=== PATIENT | female | born 1990 | race Caucasian/White ===

== ENCOUNTER 2025-04-19 21:02 | Emergency (ER) | payer SELFPAY ==
[2025-04-19 21:11] VITALS: BP 119/52; PULSE 110; RESP 20; TEMP 36.7; O2SAT 100
[2025-04-19 21:49] LABS: Strep Group A RT-PCR DETECTED (Negative)
[2025-04-19 22:05] LABS: Influenza A QL RT-PCR Negative (Negative); Influenza B QL RT-PCR Negative (Negative); SARS-CoV-2 RNA PCR Negative (Negative)
--- NOTE | 2025-04-19 23:06 | ED.GENADULT ---
HPI - General Adult General Chief complaint: Unspecified Stated complaint: Strep throat-white patches Time Seen by Provider: 04/19/25 22:47 History of Present Illness HPI narrative: Patient is a 34-year-old female who presents to the ER with a 2 day history of sore throat. She reports she noticed her throat was red 2 days ago and yesterday she started having fevers. Patient reports today she noticed white patches on her tonsils so she decided to come in for evaluation. She endorses body aches and pain. Patient endorses a history of a broken neck, hysterectomy, and multiple abdominal surgeries. She reports she has not been taking any antibiotics recently. Patient denies any neck stiffness, mastoid tenderness, difficulty swallowing, skin rashes, or shortness of breath. Related Data Allergies Allergy/AdvReac Type Severity Reaction Status Date / Time No Known Allergies Allergy Verified 04/19/25 21:03 Review of Systems Review of Systems: All systems reviewed & are unremarkable except as noted in HPI and below Exam Narrative: GENERAL: Well appearing, well-nourished, non-toxic, in no acute distress. HEAD: Normocephalic, atraumatic. + red, edematous tonsils bilaterally, no visible white patches NECK: Supple. No adenopathy, no masses. RESPIRATORY: Airway patent, respirations nonlabored. Clear to auscultation bilaterally, no rales, rhonchi, wheezing. CARDIOVASCULAR: Regular rate and rhythm without murmurs, rubs, or gallops. Peripheral pulses 2+ and equal bilaterally. ABDOMINAL: Soft, nontender, nondistended. Normoactive BS. MUSCULOSKELETAL: Moves all extremities. Strength/ROM intact without gross deformities. SKIN: Warm, dry, normal color. No rashes. NEURO: A&O X3. Speech clear. Cranial nerves II-XII intact. No ataxic movements. PSYCHIATRIC: Appropriate mood and affect. Normal interaction. Course Vital Signs Vital signs: Vital Signs Temperature 36.7 C 04/19/25 21:11 Pulse Rate 110 H 04/19/25 21:11 Respiratory Rate 20 04/19/25 21:11 Blood Pressure 119/52 L 04/19/25 21:11 Pulse Oximetry 100 04/19/25 21:11 Oxygen Delivery Room Air 04/19/25 21:11 Temperature 36.7 C 04/19/25 21:11 Pulse Rate 110 H 04/19/25 21:11 Respiratory Rate 20 04/19/25 21:11 Blood Pressure 119/52 L 04/19/25 21:11 Pulse Oximetry 100 04/19/25 21:11 Oxygen Delivery Room Air 04/19/25 21:11 Medical Decision Making MDM Narrative Medical decision making narrative: Patient is a 34-year-old female who presents to the ER with a 2 day history of sore throat. She reports she noticed her throat was red 2 days ago and yesterday she started having fevers. Patient reports today she noticed white patches on her tonsils so she decided to come in for evaluation. She endorses body aches and pain. Patient endorses a history of a broken neck, hysterectomy, and multiple abdominal surgeries. She reports she has not been taking any antibiotics recently. Patient denies any neck stiffness, mastoid tenderness, difficulty swallowing, skin rashes, or shortness of breath Patient was swabbed for strep and COVID. Her strep swab came back positive Patient Education/Shared MDM: Results of lab work shared with patient. She will be given her 1st dose of amoxicillin here before discharge. Patient strongly advised to maintain hydration status upon discharge and follow-up with her PCP as needed. She will be discharged home with a prescription for Amoxicillin. Strict return precautions provided. Patient verbalized understanding and is in agreement with plan. Vital signs stable at time of discharge. All questions answered. Differential Diagnosis Differential Diagnosis: Strep throat, COVID/flu/RSV, sore throat, upper respiratory infection Vital Signs Vital Signs: Vital Signs Temperature 36.7 C 04/19/25 21:11 Pulse Rate 110 H 04/19/25 21:11 Respiratory Rate 20 04/19/25 21:11 Blood Pressure 119/52 L 04/19/25 21:11 Pulse Oximetry 100 04/19/25 21:11 Oxygen Delivery Room Air 04/19/25 21:11 Temperature 36.7 C 04/19/25 21:11 Pulse Rate 110 H 04/19/25 21:11 Respiratory Rate 20 04/19/25 21:11 Blood Pressure 119/52 L 04/19/25 21:11 Pulse Oximetry 100 04/19/25 21:11 Oxygen Delivery Room Air 04/19/25 21:11 Lab Data Lab results reviewed: Yes I reviewed the patient's lab results. Labs: Lab Results 08/03/25 Range/Units 21:15 Influenza A (RT-PCR) Negative (Negative) Influenza B (RT-PCR) Negative (Negative) SARS-CoV-2 RNA (RT-PCR) Negative (Negative) Group A Strep (PCR) Detected A (Negative) Discharge Plan Discharge Clinical Impression: Strep throat, Acute sore throat Patient Disposition: Home Condition: Stable Instructions: Antibiotic Form, Strep Throat (ED) Additional Instructions: Please return to the ER with any worsening symptoms. Follow-up with primary care provider as needed. Take all medications as prescribed, including regularly scheduled medications. Please complete your full dose of antibiotics. You may take Tylenol and ibuprofen together for pain control. Please try gargling with salt water for pain relief also. Patient Language: [place] Prescriptions: New amoxicillin 500 mg capsule 500 mg PO Q12H Qty: 20 0RF Follow-up/Referrals: Jose Kumar MD [Physician] - (primary care) PHYSICIAN,PAYMENT SPECIALIST [Primary Care Provider] - Time of Disposition: 23:12
[2025-04-19] MEDS: AMOXICILLIN 500 MG CAPSULE PO (23:14)
[2025-04-19 23:21] VITALS: BP 120/61; PULSE 105; RESP 20; TEMP 36.5; O2SAT 100
== END 2025-04-19 23:22 | disposition home or self-care (01) ==
PROVIDERS: Student in an Organized Health Care Education/Training Program; Emergency Provider Registered Nurse
DX: J02.0 Streptococcal pharyngitis (principal); Z20.822 Contact with and (suspected) exposure to COVID-19
CPT/HCPCS: 87636; 87651; 99283; A9270